=== PATIENT | male | born 1980 | race Caucasian/White ===

== ENCOUNTER 2023-10-30 11:49 | Emergency (ER) | payer OTHER, SELFPAY ==
[2023-10-30 11:53] VITALS: BP 121/68
[2023-10-30 12:03] VITALS: BMI 29.2
[2023-10-30 12:17] VITALS: BP 117/67
[2023-10-30 12:28] LABS: % Basophils 0.8 % (0-2); % Eosinophils 8.1 % (0-6); % Immature Granulocytes 0.3 % (0-0.5); % Lymphocytes 27.2 % (20.5-51.1); % Monocytes 8.7 % (1.7-9.3); % Neutrophils 54.9 % (42.2-75.2); Absolute Basophils 0.1 10^3/uL (0-0.2); Absolute Eosinophils 0.5 10^3/uL (0-0.7); Absolute Lymphocytes 1.7 10^3/uL (1.2-3.4); Absolute Monocytes 0.5 10^3/uL (0.1-0.6); Absolute Neutrophils 3.3 10^3/uL (1.4-6.5); Hematocrit 37.2 % (39.0-52.0); Mean Corp Hgb Conc. 34.9 g/dL (33.0-37.0); Mean Corpuscular Hgb 31.3 pg (27.0-31.0); Mean Corpuscular Volume 89.6 fL (80.0-94.0); Nucleated Red Blood Cells % 0 % (-); Platelet Count 251 10^3/uL (130-400); Red Blood Cell Count 4.15 10^6/uL (4.70-6.10); Red Cell Dist. Width 12.9 % (11.5-14.5); White Blood Cell Count 6.1 10^3/uL (4.8-10.8)
[2023-10-30 12:53] LABS: ALT (SGPT) 16 U/L (0-50); AST (SGOT) 24 U/L (17-59); Albumin 4.5 g/dl (3.5-5.0); Alkaline Phosphatase 60 U/L (38-126); Blood Urea Nitrogen 12 mg/dl (9-20); Calcium 9.3 mg/dl (8.4-10.2); Carbon Dioxide 24 mmol/L (22-30); Chloride 105 mmol/L (98-107); Estimated Creatinine Clearance > 125 ml/min; Glucose 96 mg/dl (70-99); Potassium 4.5 mmol/L (3.5-5.1); Sodium 136 mmol/L (135-145); Total Bilirubin 0.7 mg/dl (0.2-1.3); Total Protein 7.2 g/dl (6.3-8.2); eGFR > 60.00
--- NOTE | 2023-10-30 13:05 | ED.GENMED ---
History of Present Illness
General
Chief Complaint: Flank Pain
Time Seen by Provider: 10/30/23 12:14
Travel History
Have you had any contact with someone who has COVID-19?: No
Do you have any symptoms of coronavirus? Fever > 100 degrees, chills, cough, shortness of breath, sore throat, loss of taste or smell, muscle aches, or headache?: No
History of Present Illness
History of Present Illness:
43-year-old male with no significant past medical history presents to the emergency department for evaluation of nontraumatic bilateral low back pain/flank pain ongoing for the past several days. Denies any traumatic injuries. States it is worse
when he stands upright or attempts to walk. Has taken ibuprofen without relief. Denies any lower urinary tract voiding symptoms. Has had lumbar spine surgery as well as kidney stones in the past but states the pain does not feel similar to either
of these
Review of Systems
Review of Systems
Allergies reviewed?: Yes
All Other Systems: ROS reviewed and negative except as documented in HPI and ROS
Phy Exam
Physical Exam
Physical Exam:
GEN: Well appearing, NAD, WDWN
HEENT: Oral mucosa moist, no scleral icterus
Cardiac: Regular rate
Lung: No respiratory distress, no tachypnea
MSK: No gross deformity or injuries. Healed midline lumbar surgical scar. Normal lumbar spine range of motion, no reproducible tenderness, negative straight leg raise bilaterally
Skin: Good color, no pallor or jaundice, no rashes
Neuro: AO x3, moves all extremities freely
Psych: Calm, cooperative
Course
Orders/Labs/Results
Orders:
Orders
10/30/23 12:16
CMP [Comprehensive Metabolic Panel] Urgent
Complete Blood Count/With Diff Urgent
Urinalysis Reflex To Culture Urgent
Date Specimen was Collected: 10/30/23
Time Specimen was Collected: 12:00
10/30/23 12:43
CT Abd/pel Without Iv Or Oral Urgent
Comment:
Reason For Exam: R flank pain
Ketorolac [Toradol] 15 mg IV NOW STA
Abnormal Lab Results
10/30/23
12:16
RBC 4.15 L 10^6/uL
(4.70-6.10)
Hct 37.2 L %
(39.0-52.0)
MCH 31.3 H pg
(27.0-31.0)
Eosinophils % 8.1 H %
(0-6)
Creatinine 0.5 L mg/dL
(0.7-1.3)
10/30/23 12:16
10/30/23 12:16
Vital Signs
Initial and Last Documented VS:
Initial Vital Signs
Temp Pulse Resp BP Pulse Ox
97.9 F 70 18 121/68 99
10/30/23 11:53 10/30/23 11:53 10/30/23 11:53 10/30/23 11:53 10/30/23 11:53
Last Documented Vital Signs
Temp Pulse Resp BP Pulse Ox
97.9 F 61 16 118/76 100
10/30/23 11:53 10/30/23 14:59 10/30/23 14:59 10/30/23 14:59 10/30/23 14:59
MDM/Problems Addressed
MDM/Problems Addressed:
CT shows mass of uncertain etiology to the right iliopsoas musculature that is likely the source of the patient's pain. I communicated these findings to the patient as well as his primary care physician, will likely require outpatient MRI and
surgical follow-up
*Critical Care Note
Total Time (30-74mins, 75-104mins- exclusive of procedures): Not Applicable
ED Attending Note
-
Portions of this chart may have been created with voice recognition software.� Occasional wrong word or��sound alike� substitutions may have occurred due to the inherent limitations of voice recognition software.
Discharge Plan
Departure
Patient Disposition: Home (Routine Discharge)
Date of Disposition: 10/30/23
Time of Disposition: 14:29
Patient with high blood pressure during this ER visit?: No
Discharge Problem:
Abdominal mass, RLQ (right lower quadrant), Low back pain
Prescriptions:
New
oxycodone 5 mg tablet
5 mg PO Q8H PRN (Reason: Pain) Qty: 10 0RF
diclofenac sodium 75 mg tablet,delayed release (DR/EC)
75 mg PO BID PRN (Reason: Pain) Qty: 30 0RF
Referrals:
Spencer Milton MD [Family Provider] -
Interventions
Interventions:
*Risk Screen - Suicide Last Done: 10/30/23 11:53
*General Assessment Last Done: 10/30/23 11:53
*Neglect/Abuse Screening Last Done: 10/30/23 11:53
ED- Fall Risk Assessment Last Done: 10/30/23 12:03
*ED COVID-19 Vaccine History Last Done: 10/30/23 11:53
*Nursing Disposition Last Done: 10/30/23 14:59
LW-Ewyytz-Hubwmuhmdi Assessment Last Done: 10/30/23 12:03
ED-Male Genitourinary Assessment Last Done: 10/30/23 12:03
Discharge Date and Time
Discharge Date/Time: 10/30/23 14:59
Print Language: CROATIAN
[2023-10-30 13:07] LABS: Urine Albumin Negative (Neg - Trace); Urine Bilirubin Negative (Negative); Urine Character Clear (Clear); Urine Color Yellow; Urine Glucose Negative (Negative); Urine Ketone Negative (Negative); Urine Leukocyte Negative (Negative); Urine Nitrite Negative (Negative); Urine Occult Blood Negative (Negative); Urine Urobilinogen Negative (Neg - 1+)
[2023-10-30] MEDS: TORADOL 15 MG IV (13:25)
[2023-10-30 14:10] VITALS: BP 114/66
--- NOTE | 2023-10-30 14:58 | EDRN ---
Reviewed discharge instructions with patient. Verbalized understanding. Ambulated with steady gait to the lobby.
[2023-10-30 14:59] VITALS: BP 118/76
== END 2023-10-30 14:59 | disposition home or self-care (01) ==
LOC: EMR 11:49
PROVIDERS: EMERGENCY PHYSICIAN Emergency Medicine; FAMILY PHYSICIAN Family Medicine
DX: R19.03 Right lower quadrant abdominal swelling, mass and lump (principal); M54.50 Low back pain, unspecified
CPT/HCPCS: 99284; 96374; 74176; 80053; 81003; 85025

== ENCOUNTER → 2023-11-02 07:29 | Outpatient (REF) | payer OTHER, SELFPAY | LOC: MRI 3T 07:29 | PROVIDERS: ATTENDING PHYSICIAN Family Medicine | DX: M62.89 Other specified disorders of muscle (principal) | CPT/HCPCS: 72197; 74183; A9575 ==

== ENCOUNTER 2024-03-04 14:41 | Emergency (ER) | payer OTHER, SELFPAY ==
[2024-03-04 14:52] VITALS: BP 125/81
--- NOTE | 2024-03-04 17:01 | ED.MUSCINJ ---
HPI-Injury
General
Chief Complaint: Musculo-Skeletal Complaint
Source: patient
Exam Limitations: none
Time Seen by Provider: 03/04/24 15:53
Nursing documentation reviewed up to this point in time: agreed with
History of Present Illness-Injury
Initial Injury comments:
Patient states he dropped a slate counter top onto his foot. COmplains of foot ankle and vaughan pain. Injury occurred just [employer]
Past History
Past History
ED Past Medical History: None
Review of Systems
Review of Systems
Allergies reviewed?: Yes
All Other Systems: ROS reviewed and negative except as documented in HPI and ROS
Constitutional: Reports no symptoms
Musculoskeletal: Reports joint pain (pain and swelling to right foot and ankle)
Skin: Reports no symptoms
Neurological: Reports no symptoms
Psychiatric: Reports no symptoms
Musculoskeletal Injury Exam
Musculoskeletal Injury Exam
Right Dorsal Foot:
Pain with Movement?: Moderate
Tender to palpation?: Moderate
Soft tissue swelling?: Moderate
External deformity and angulation?: None
Joint effusion?: None
Hematoma-local bleeding into tissue?: None
Strain- Sprain- Tear (Connective tissue injury)?: None
Crepitus with movement?: No
Joint instability?: No
Malalignment/deformity?: No
Range of motion: Limited
Distal skin color and temperature: normal-warm & good color
Capillary Refill: normal
Normal distal neurovascular exam?: Yes
Peripheral Pulses: posterior tibial (right): 3+ and dorsalis pedis (right): 3+
Right Ankle:
Pain with Movement?: Moderate
Tender to palpation?: Moderate
Soft tissue swelling?: Moderate
External deformity and angulation?: None
Joint effusion?: None
Contusion?: Moderate
Hematoma-local bleeding into tissue?: None
Strain- Sprain- Tear (Connective tissue injury)?: None
Crepitus with movement?: No
Joint instability?: No
Malalignment/deformity?: No
Range of motion: Limited
Distal skin color and temperature: normal-warm & good color
Capillary Refill: normal
Normal distal neurovascular exam?: Yes
Left Lower Leg:
Pain with Movement?: Moderate
Tender to palpation?: Moderate
Soft tissue swelling?: None
External deformity and angulation?: None
Joint effusion?: None
Contusion?: None
Hematoma-local bleeding into tissue?: None
Strain- Sprain- Tear (Connective tissue injury)?: None
Crepitus with movement?: No
Joint instability?: No
Malalignment/deformity?: No
Range of motion: Limited
Distal skin color and temperature: normal-warm & good color
Capillary Refill: normal
Normal distal neurovascular exam?: Yes
Phy Exam
General Physical Exam
General Presentation: well appearing and mild distress
General age: appears stated age
General Skin: warm and dry
General Habitus: normal
General Mental: alert
Musculoskeletal Exam
Musculoskeletal Exam: neuro vasc intact
Skin Exam
Skin Exam: normal color, warm/dry and no rash
Psychiatric Exam
Psychiatric Exam: normal mood/affect
Injury Course
Orders/Labs/Results
Orders:
Orders
03/04/24 14:58
Ankle, Right 3 view CR [CR Ankle - Right Min 3 Views *] Urgent
Comment:
Reason For Exam: injury
03/04/24 16:25
Foot, Right 3 View [CR Foot - Right Min 3 Views] Urgent
Comment:
Reason For Exam: trauma
Tib/Fib, Right 2 View [CR Leg Tibia/fibula Right 2 Vw] Urgent
Comment:
Reason For Exam: trauma
03/04/24 16:58
Ortho Boot Right- Treatment ONCE
Short or tall?: Tall
*Radiology
Radiology exam reviewed: radiology read reviewed
*Pulse Oximetry
Patient hypoxic: no
*Critical Care Note
Total Time (30-74mins, 75-104mins- exclusive of procedures): Not Applicable
ED Attending Note
-
Portions of this chart may have been created with voice recognition software.� Occasional wrong word or��sound alike� substitutions may have occurred due to the inherent limitations of voice recognition software.
Discharge Plan
Departure
Patient Disposition: Home (Routine Discharge)
Date of Disposition: 03/04/24
Time of Disposition: 16:58
Patient with high blood pressure during this ER visit?: No
Condition: Good
Covid-19: Not Applicable
Discharge Problem:
Contusion of foot
Instructions: How to Use Crutches, Contusion (DC), Ibuprofen, Using Cold for Pain
Prescriptions:
No Action
oxycodone 5 mg tablet
5 mg PO Q8H PRN (Reason: Pain) Qty: 10 0RF
diclofenac sodium 75 mg tablet,delayed release (DR/EC)
75 mg PO BID PRN (Reason: Pain) Qty: 30 0RF
Referrals:
Slim Ritchie MD [Active] - (Follow up if your symptoms do not improve over the next week.)
Christa Johnson CRNP [Family Provider] -
Interventions
Interventions:
ED-Musculoskeletal Assessment Last Done: 03/04/24 16:17
Discharge Date and Time
Print Language: LAO
== END 2024-03-04 17:21 | disposition home or self-care (01) ==
LOC: EMR 14:41
PROVIDERS: EMERGENCY PHYSICIAN Emergency Medicine; FAMILY PHYSICIAN Nurse Practitioner Family
DX: S90.31XA Contusion of right foot, initial encounter (principal); W20.8XXA Other cause of strike by thrown, projected or falling object, initial encounter
CPT/HCPCS: 99283; 73590; 73610; 73630